=== PATIENT | female | born 1990 | race Caucasian/White ===

== ENCOUNTER 2021-02-13 09:50 | Emergency (ER) | payer OTHER, SELFPAY ==
[2021-02-13 10:14] VITALS: BP 118/69; PULSE 81; RESP 16; TEMP 36.6; O2SAT 100
--- NOTE | 2021-02-13 10:29 | ED.SKABFB ---
HPI - Skin/Abscess/Foreign Bdy General Chief complaint: Skin/Abscess/Foreign Body Stated complaint: stitches removal Time Seen by Provider: 02/13/21 10:30 Source: patient Mode of arrival: ambulatory Limitations: no limitations History of Present Illness HPI narrative: Ria Swanson is a 30-year-old female who comes to [facility] for removal of sutures 1n forearm that were placed at at [facility] Related Data Home Medications Medication Instructions Recorded Confirmed apremilast [Otezla] 1 mg PO BID 02/13/21 02/13/21 levonorgestrel [Mirena] 1 device INTRAUTERINE ONCE 02/13/21 02/13/21 metformin 1 mg PO DAILY 02/13/21 02/13/21 Allergies Allergy/AdvReac Type Severity Reaction Status Date / Time Penicillins Allergy Mild SWELLING, Verified 02/13/21 10:21 HIVES DIPHENHYDRAMINE HCL Allergy Mild SWELLING, Uncoded 02/13/21 10:21 HIVES Review of Systems Review of Systems: Narrative: CONSTITUTIONAL: Denies fever, chills, sweats. EYES: Denies visual changes, redness, discharge. ENT: Denies rhinorrhea, congestion, sore throat, otalgia. CARDIOVASCULAR: Denies chest pain, palpitations, edema. RESPIRATORY: Denies dyspnea, wheezing, cough GASTROINTESTINAL: Denies abdominal pain, nausea, vomiting, diarrhea. GENITOURINARY: Denies dysuria, hematuria, abnormal discharge SKIN: Denies rash or itching. Here for suture removal of 4 sutures from palmar side of left forearm NEUROLOGIC: Denies numbness, or focal weakness. PSYCHIATRIC: Denies anxiety or depression. PMFSH Past Medical History Medical History No acute medical problems Social History Social History (Updated 02/13/21 @ 10:41 by Dorothy Munoz CNP) Smoking status: Never smoker Alcohol intake: current Gender identity (if verbalized by the patient): Female Comments At time of signature, I agree with nursing past medical, surgical, social and family history. There is no relevant family history pertinent to the presenting complaint. Exam Narrative: Exam Narrative: GENERAL: This is a well-nourished, well-developed patient, in mild distress. High anxiety about suture removal HEAD: normocephalic, atraumatic. EYES: Sclera clear/white. Vision is grossly intact. EARS: External ears normal, Hearing grossly intact. NOSE: External nose normal without nasal discharge, nares without redness, no rhinorrhea. THROAT: Mucous membranes moist, NECK: Neck supple, non-tender CARDIOVASCULAR: Regular rate and rhythm without murmurs, gallops, or rubs. RESPIRATORY: Clear to auscultation. Breath sounds equal bilaterally. No wheezes, rales, or rhonchi. GASTROINTESTINAL: Abdomen soft, SKIN: warm, intact with no suspicious lesions or rash, good texture and turgor. Scar developing on left forearm where sutures are to be removed from, good approximation, no drainage or infection noted NEURO: awake, alert, and oriented to person, place and time. There were no obvious focal neurologic abnormalities. Steady gait EXTREMITIES: Normal range of motion. BACK: Nontender without deformity Course Course Emergency Course: 30-year-old patient comes to [facility] for suture removal 4 sutures removal from left forearm patient very anxious during process To follow-up with primary care physician Vital Signs Vital signs: Vital Signs Temperature 97.9 F 02/13/21 10:14 Pulse Rate 81 02/13/21 10:14 Respiratory Rate 16 02/13/21 10:14 Blood Pressure 118/69 02/13/21 10:14 Pulse Oximetry 100 02/13/21 10:14 Temperature 97.9 F 02/13/21 10:14 Pulse Rate 81 02/13/21 10:14 Respiratory Rate 16 02/13/21 10:14 Blood Pressure 118/69 02/13/21 10:14 Pulse Oximetry 100 02/13/21 10:14 Procedures Other Procedure Procedure 1: Other Procedure: Suture removal of 4 sutures from left forearm-well approximated and healed-patient tolerated MDM - Skin/Abscess/Foreign Bdy Differential Diagnosis Differential
== END 2021-02-13 10:54 | disposition home or self-care (01) ==
PROVIDERS: Emergency Provider Nurse Practitioner; PCP Physician Assistant
DX: S51.812D Laceration without foreign body of left forearm, subsequent encounter (principal); X58.XXXD Exposure to other specified factors, subsequent encounter
CPT/HCPCS: 99211; G0463

== ENCOUNTER 2021-08-04 12:52 | Emergency (ER) | payer OTHER, SELFPAY ==
[2021-08-04 13:49] VITALS: BP 108/76; PULSE 87; RESP 16; TEMP 36.4; O2SAT 100
--- NOTE | 2021-08-04 14:17 | ED.UPPEXIN ---
HPI - Extremity Injury (Upper) General Chief Complaint: Extremity Injury, Upper Stated Complaint: rt hand thumb pain Source: patient and RN notes reviewed Limitations: no limitations History of Present Illness HPI narrative: The right-handed patient, with a history of psoriasis on Otezla, presents with right thumb pain. Patient states he has a couple day history of atraumatic right thumb pain that is mild, worse with motion, better at rest, located the [facility] area. No injury, deformity, weakness, skin changes-but she comments she has had a flare of her psoriasis on her scalp in the last couple days. Related Data Home Medications Medication Instructions Recorded Confirmed apremilast [Otezla] 1 mg PO BID 02/13/21 08/04/21 levonorgestrel [Mirena] 1 device INTRAUTERINE ONCE 02/13/21 08/04/21 Allergies Allergy/AdvReac Type Severity Reaction Status Date / Time Penicillins Allergy Mild SWELLING, Verified 08/04/21 13:48 HIVES DIPHENHYDRAMINE HCL Allergy Mild SWELLING, Uncoded 08/04/21 13:48 HIVES Review of Systems Review of Systems: General/Constitutional: No weight loss,fever Eyes: N0: Redness,discharge Ears/Nose/Throat: No: Epistaxis,ear discharge Respiratory: Denies: Hemoptysis Gastrointestinal: No Vomiting, Bleeding-rectal Skin: No Lumps, REPORTS eruption Neurologic: No Focal Weakness,Sz Hematologic: Denies: Petechiae/Purpura Psychiatric: No: Suicida ideationl All Other Systems: Reviewed and Negative PMFSH Past Medical History Medical History No acute medical problems Social History Social History (Updated 02/13/21 @ 10:41 by Dorothy Munoz CNP) Smoking status: Never smoker Alcohol intake: current Gender identity (if verbalized by the patient): Female Comments At time of signature, agree with nursing past medical, surgical, social and family history. There is no relevant family history pertinent to the presenting complaint Exam Narrative: General Appearance: Well appearing, Well nourished, No distress EYE: PERRLA, EOMI, Conjunctiva clear Ears: External ear normal, Auditory canal normal Nose: Normal nose, Nares clear Mouth/Throat: Normal appearing, Normal lips, Supple Respiratory: Airway patent, No respiratory distress MS-thumb: Normal strength (mostly intact, limited flexion/extension by pain), Tenderness (CMC tendons, with mild decreased ROM), no swelling , Other (no anterior drawer, no collateral laxity, no ulnar collateral laxity ,no Alli) Skin: Warm, Dry, psoriatic changes of the posterior scalp Neurological: A&O x3,, Normal affect Course Vital Signs Vital signs: Vital Signs Temperature 97.5 F L 08/04/21 13:49 Pulse Rate 87 08/04/21 13:49 Respiratory Rate 16 08/04/21 13:49 Blood Pressure 108/76 08/04/21 13:49 Pulse Oximetry 100 08/04/21 13:49 Temperature 97.5 F L 08/04/21 13:49 Pulse Rate 87 08/04/21 13:49 Respiratory Rate 16 08/04/21 13:49 Blood Pressure 108/76 08/04/21 13:49 Pulse Oximetry 100 08/04/21 13:49 Discharge Plan Discharge Clinical Impression: Tendonitis of finger, Hx of psoriasis Patient Disposition: Home, Self-Care Condition: Stable Instructions: De Quervain Disease (ED) Prescriptions: New prednisone 20 mg tablet 60 mg PO DAILY Qty: 15 RF: 0 tramadol 50 mg tablet 50 - 75 mg PO TID PRN (Reason: pain) Qty: 20 RF: 0 No Action Mirena 20 mcg/24 hours (6 yrs) 52 mg Intrauterine Device 1 device INTRAUTERINE ONCE RF: 0 Otezla 30 mg tablet 1 mg PO BID RF: 0 Follow-up/Referrals: Félix,VIJI Mercedes [Primary Care Provider] -
== END 2021-08-04 14:23 | disposition home or self-care (01) ==
PROVIDERS: Emergency Provider Emergency Medicine; PCP Physician Assistant
DX: M77.8 Other enthesopathies, not elsewhere classified (principal)
CPT/HCPCS: 99213; G0463

== ENCOUNTER 2021-12-11 21:12 | Emergency (ER) | payer OTHER, SELFPAY ==
--- NOTE | ~2021-12-11 | CT_ITS ---
EXAMINATION: CT abdomen pelvis w con DATE: 12/11/2021 22:15 INDICATION: Lower abdominal pain and cramping for 2 weeks since IUD placement TECHNIQUE: Computed tomography (CT) of the abdomen and pelvis was performed with 100 CC Omnipaque 350 intravenous contrast. Automated exposure control and iterative reconstruction technique were employe d. Exam dose: 309.99 mGy-cm total exam DLP. COMPARISON: None. FINDINGS: The lung bases are clear of infiltrate or consolidation. Normal heart size. No pericardial or pleural effusion. The liver, spleen, pancreas, and adrenal glands, bile ducts, pancreatic duct and kidneys appear herman l. No urinary tract calculus or hydroureteronephrosis. The urinary bladder is unremarkable. An IUD is noted within the uterus. The right limb is within 4 mm of the serosal surface of the uterin e fundus. No adnexal mass lesion is noted. A small amount of free fluid is noted in the cul-de-sac, possibly ph ysiologic. Normal caliber of the abdominal aorta. No intraperitoneal or retroperitoneal or pelvic mass lesion or adenopathy. Normal appendix. No bowel obstruction or intraperitoneal free air. Very small fat-containing umbilical hernia. Included skeletal structures are unremarkable. IMPRESSION: IUD within uterus; the right limb is within 4 mm of the serosal surface of the uterine f undus Reviewed, dictated and finalized at [facility]. Reviewed, dictated and finalized at [facility]. IMPRESSION: IUD within uterus; the right limb is within 4 mm of the serosal correa rface of the uterine fundus
[2021-12-11 21:15] VITALS: BP 123/75; PULSE 82; RESP 18; TEMP 36.6; O2SAT 97
[2021-12-11 21:45] LABS: Basophils Percent Auto 0.2 % (0.2-1.2); Eosinophils Absolute Auto 0.2 K/mm3 (0-0.3); Eosinophils Percent Auto 2.5 % (0-4.4); Hematocrit 38.3 % (37.0-47.0); Hemoglobin 12.5 g/dL (12.0-15.0); Immature Granulocyte Absolute 0.02 K/mm3 (0.00-0.031); Immature Granulocyte Percent A 0.2 % (0-0.5); Lymphocytes Percent Auto 31.3 % (18.3-44.2); Mean Corpuscular HGB Conc 32.6 g/dl (32-36); Mean Corpuscular Hemoglobin 29.8 pg (26-34); Mean Corpuscular Volume 91.4 fl (80-100); Mean Platelet Volume 10.1 fl (7.4-10.4); Monocytes Absolute Auto 0.6 K/mm3 (0.1-0.6); Monocytes Percent Auto 6.6 % (2.6-8.5); Neutrophils Absolute Auto 4.9 K/mm3 (1.3-6.7); Neutrophils Percent Auto 59.2 % (45.5-73.1); Platelet Count Result 262 k/mm3 (150-375); Red Blood Count 4.19 M/mm3 (4.2-5.4); Red Cell Distribution Width 13.3 % (11.5-14.5); White Blood Count 8.3 K/mm3 (4.5-10.0)
[2021-12-11 21:46] LABS: Add Urine Microscopic? YES; Appearance Urine Clear (Clear); Bacteria Urine Trace /hpf; Bilirubin Urine Negative (Negative); Blood Urine Negative (Negative); Color Urine Colorless (Yellow); Glucose Urine UA Negative (Negative); Ketones Urine Trace mg/dL (Negative); Leukocyte Esterase Ur Negative LEU/UL (Negative); Nitrate Urine Negative (Negative); Protein Urine Negative (Negative); RBC Urine 0-2 /hpf (0-2); Squamous Epithelial Cell Urine Rare /hpf (Few); Urobilinogen Urine Negative mg/dL (<2.0); WBC Urine 0-3 /hpf
[2021-12-11 21:47] LABS: Specific Grav Ur 1.004 (1.001-1.035)
[2021-12-11 21:54] LABS: Alanine Aminotransferase 19 U/L (4-35); Albumin Level 4.5 g/dL (3.5-5.1); Alkaline Phosphatase 68 U/L (38-126); Anion Gap 10 mmol/L (8-16); Aspartate Amino Transferase 32 U/L (14-36); Bilirubin,Total 0.2 mg/dL (0.2-1.3); Blood Urea Nitrogen 25 mg/dL (7-17); Calcium 9.1 mg/dL (8.4-10.2); Carbon Dioxide 21 mmol/L (22-30); Chloride 107 mmol/L (98-107); Estimated CRCL calculation 65 ml/min; Estimated Glomerular Filt Rate > 60; Glucose 90 mg/dL (65-110); Lipase 200 U/L (23-300); Potassium 3.6 mmol/L (3.4-5.0); Sodium 138 mmol/L (137-145)
--- NOTE | 2021-12-11 21:57 | ED.FEMALEGU ---
HPI - Female Genitourinary General Chief complaint: Urogenital-Female <Susy Ross PA-C - Last Filed: 12/11/21 23:30> Stated complaint: Pelvic Pain <JOVANA Fong Last Filed: 12/11/21 23:30> Time Seen by Provider: 12/11/21 21:19 <JOVANA Fong Last Filed: 12/11/21 23:30> Source: patient <JOVANA Fong Last Filed: 12/11/21 23:30> Mode of arrival: ambulatory <JOVANA Fong Last Filed: 12/11/21 23:30> Limitations: no limitations <JOVANA Fong Last Filed: 12/11/21 23:30> History of Present Illness HPI Narrative: This is a 31 year old female that presents to the ER for lower abdominal pain present over the last week. Reports the pain has been intermittent in nature. Reports she had an IUD placed a year ago. She was concerned that maybe the pain is from her IUD. She is currently on her menstrual cycle. Denies fever, vomiting, dysuria or hematuria. <JOVANA Fong Last Filed: 12/11/21 23:30> Related Data Home medications: Home Medications Medication Instructions Recorded Confirmed apremilast [Otezla] 1 mg PO BID 02/13/21 08/04/21 levonorgestrel [Mirena] 1 device INTRAUTERINE ONCE 02/13/21 08/04/21 <JOVANA Fong Last Filed: 12/11/21 23:30> Allergies/Adverse reactions: Allergies Allergy/AdvReac Type Severity Reaction Status Date / Time Penicillins Allergy Mild SWELLING, Verified 08/04/21 13:48 HIVES DIPHENHYDRAMINE HCL Allergy Mild SWELLING, Uncoded 08/04/21 13:48 HIVES <JOVANA Fong Last Filed: 12/11/21 23:30> Review of Systems Review of Systems: CONSTITUTIONAL: Denies fever GASTROINTESTINAL: Reports abdominal pain. Denies nausea, vomiting, or diarrhea. GENITOURINARY: Denies dysuria or hematuria. <Susy Ross PA-C - Last Filed: 12/11/21 23:30> All systems reviewed & are unremarkable except as noted in HPI and below <Susy Ross PA-C - Last Filed: 12/11/21 23:30> PMFSH Past Medical History Medical History: Medical History No acute medical problems <Susy Ross PA-C - Last Filed: 12/11/21 23:30> Social History Social History: Social History (Updated 02/13/21 @ 10:41 by Dorothy Munoz CNP) Smoking status: Never smoker Alcohol intake: current Gender identity (if verbalized by the patient): Female <Susy Ross PA-C - Last Filed: 12/11/21 23:30> Exam Narrative: GENERAL: Well-appearing, well-nourished, and in no acute distress. HEAD: Normocephalic, atraumatic. EYES: EOMI. CHEST: Clear to auscultation. No respiratory distress. No wheezes rales or rhonchi HEART: Regular rate and rhythm. No murmur heard. Normal peripheral pulses. ABDOMEN: Soft, nondistended, normal active bowel sounds. Mild tenderness to palpation throughout the abdomen, without guarding EXTREMITIES: Normal range of motion. No edema. SKIN: Warm, dry, no rash. NEURO: No focal deficits. Alert and oriented x3. PSYCH: Normal mood and affect PELVIC: IUD strings visible. Mild amount of dark brown blood in the vaginal vault <Susy Ross PA-C - Last Filed: 12/11/21 23:30> Course WHEAT WASHER/PA Physician Supervision For this patient encounter, I reviewed the WHEAT WASHER or PA documentation, treatment plan, and medical decision making <Nickolas Echevarria MD - Last Filed: 12/12/21 02:35> Vital Signs Vital signs: Vital Signs Temperature 97.9 F 12/11/21 21:15 Pulse Rate 82 12/11/21 21:15 Respiratory Rate 18 12/11/21 21:15 Blood Pressure 123/75 12/11/21 21:15 Pulse Oximetry 97 12/11/21 21:15 Temperature 97.9 F 12/11/21 21:15 Pulse Rate 77 12/12/21 00:00 Respiratory Rate 16 12/12/21 00:00 Blood Pressure 112/74 12/12/21 00:00 Pulse Oximetry 100 12/12/21 00:00 <Susy Ross PA-C - Last Filed: 12/11/21 23:30> Vital Signs Temperature 97.9 F 12/11/21 21:15
[2021-12-11] MEDS: ONDANSETRON INJ 4 MG/2 ML VIAL IV PUSH (23:12)
[2021-12-12] VITALS: BP 112/74; PULSE 77; RESP 16; O2SAT 100
== END 2021-12-12 00:01 | disposition home or self-care (01) ==
PROVIDERS: Physician Assistant; Emergency Provider Emergency Medicine; PCP Physician Assistant
DX: T83.32XA Displacement of intrauterine contraceptive device, initial encounter (principal); Y76.2 Prosthetic and other implants, materials and accessory obstetric and gynecological devices associated with adverse incidents
CPT/HCPCS: 36415; 74177; 80053; 81001; 81025; 83690; 85025; 96365; 96375; 99284; J0131; J2405; Q9967